=== PATIENT | male | born 1965 | race Caucasian/White ===

== ENCOUNTER 2021-04-05 12:24 | Outpatient (CLI) | payer MEDICARE, SELFPAY ==
--- NOTE | ~2021-04-05 | XR_ITS ---
XR foot LT standing 2V DATE: 04/05/2021 13:14 INDICATION: Osteoarthritis TECHNIQUE: AP and lateral weightbearing views COMPARISON: None FINDINGS: Diffuse osteopenia. There is plantar and posterior calcaneal enthesopathy. There is polyarticular osteoarthritis at the tarsal and tarsometatarsal joints and first and second m etatarsophalangeal joint. No fracture or dislocation, periosteal reaction or bone destruction is evident. There is prominent calcification of the anterior and posterior tibial arteries and dorsalis pedis art [place] and some metatarsal artery calcification, likely due to diabetes. IMPRESSION: Diffuse osteopenia Polyarticular osteoarthritis Prominent articular space, likely due to diabetes Reviewed, dictated and finalized at location A.
--- NOTE | ~2021-04-05 | XR_ITS ---
XR lumbar spine min 4V DATE: 04/05/2021 13:14 INDICATION: Back pain TECHNIQUE: AP, bilateral oblique, lateral and coned lateral sacral views COMPARISON: None FINDINGS: There is mild rotatory levoscoliosis. There is grade 1 anterolisthesis at L4-5. No spondylolisthesis is noted. No fracture or bone destruction is detected. The lumbar pedicles are intact. There is mild degenerative disc disease throughout the lumbar spine. Degenerative spurring of the low er thoracic spine. The sacroiliac joints are normal. Status post left total hip arthroplasty. Surgical clips, right upper quadrant, consistent with cholecystectomy. IMPRESSION: Mild rotatory levoscoliosis Multilevel mild degenerative disc disease Status post left total hip arthroplasty Status post cholecystectomy Reviewed, dictated and finalized at location A.
--- NOTE | ~2021-04-05 | XR_ITS ---
XR shoulder RT min 2V DATE: 04/05/2021 13:14 INDICATION: Right shoulder pain TECHNIQUE: 4 views COMPARISON: None FINDINGS: There is diffuse osteopenia. There is dextroscoliosis and degenerative spurring of the thoracic spine. No fracture or dislocation, periosteal reaction or bone destruction of the right shoulder is evident. There is osteophytic change at the right glenohumeral joint. IMPRESSION: Osteopenia Osteoarthritis at glenohumeral joint Degenerative spurring and extra scoliosis of the thoracic spine Reviewed, dictated and finalized at location A.
--- NOTE | ~2021-04-05 | XR_ITS ---
XR hand BI arthritis min 3V DATE: 04/05/2021 13:14 INDICATION: Pain. Osteoarthritis. TECHNIQUE: 4 views of each hand COMPARISON: None FINDINGS: Right hand: There is diffuse osteopenia. There is severe joint space narrowing at the radiocarpal joint and carpal joints as well as narrowing at the carpometacarpal joints. There is mild osteoarthritis at the metacarpophalangeal joints as wel l as osteophytic change at some of the interphalangeal joints. No erosive change is evident. No fracture, dislocation, periosteal reaction or bone destruction is de tected. Very prominent arterial calcification, especially the right and left radial artery, suggesting diabet es or less likely hyperparathyroidism or other hypercalcemic state. Left hand: There is ankylosis at the radiocarpal and carpal joints. There is joint space narrowing at the carpom etacarpal joints. Mild osteoarthritic changes are noted at the interphalangeal joints. IMPRESSION: Prominent polyarticular osteoarthritis of the right hand, particularly severe at the radi ocarpal and carpal joints Ankylosis at the left radiocarpal and carpal joints Osteoarthritis at the carpometacarpal and interphalangeal joints of the left hand Diffuse osteopenia Prominent arterial calcification, suggesting diabetes most likely Reviewed, dictated and finalized at location A. IMPRESSION: Prominent polyarticular osteoarthritis of the right hand, particula rly severe at the radiocarpal and carpal joints Ankylosis at the left radiocarpal and carpal joints Osteoarthritis at the carpometacarpal and interphalangeal joints of the left steinberg nd Diffuse osteopenia Prominent arterial calcification, suggesting diabetes most likely
--- NOTE | ~2021-04-05 | XR_ITS ---
XR shoulder LT min 2V DATE: 04/05/2021 13:14 INDICATION: Left shoulder pain TECHNIQUE: 4 views COMPARISON: None FINDINGS: There is diffuse osteopenia. No fracture or dislocation, periosteal reaction or bone destruction is detected. IMPRESSION: Osteopenia Reviewed, dictated and finalized at location A. IMPRESSION: Osteopenia
--- NOTE | ~2021-04-05 | XR_ITS ---
XR foot RT standing 2V DATE: 04/05/2021 13:14 INDICATION: Osteoarthritis TECHNIQUE: AP and lateral weightbearing views COMPARISON: None FINDINGS: There is diffuse osteopenia. There is plantar and posterior calcaneal enthesopathy. There is osteoarthritic change at the tarsal and tarsometatarsal joints and first metatarsophalangeal joint. No recent fracture or dislocation, periosteal reaction or bone destruction is detected. There is prominent calcification of the anterior and posterior tibial and dorsalis pedis arteries as well as metatarsal artery calcifications, likely due to diabetes. IMPRESSION: Polyarticular osteoarthritis Diffuse osteopenia Prominent articular calcifications, suggesting diabetes Reviewed, dictated and finalized at location A.
[2021-04-05 14:03] LABS: Hematocrit 39.5 % (42.0-52.0); Hemoglobin 11.8 g/dL (14.0-18.0); Mean Corpuscular HGB Conc 29.9 g/dl (32-36); Mean Corpuscular Hemoglobin 24.7 pg (26-34); Mean Corpuscular Volume 82.8 fl (80-100); Platelet Count Result 405 k/mm3 (150-375); Red Blood Count 4.77 M/mm3 (4.6-6.20); Red Cell Distribution Width 14.6 % (11.5-14.5); White Blood Count 7.9 K/mm3 (4.5-10.0)
[2021-04-05 14:12] LABS: Alanine Aminotransferase 13 U/L (4-50); Albumin Level 3.6 g/dL (3.5-5.1); Alkaline Phosphatase 89 U/L (38-126); Anion Gap 9 mmol/L (8-16); Aspartate Amino Transferase 16 U/L (17-59); Bilirubin,Total 0.3 mg/dL (0.2-1.3); Blood Urea Nitrogen 10 mg/dL (9-20); CRP 3.5 mg/dL (<1.0); Carbon Dioxide 27 mmol/L (22-30); Chloride 99 mmol/L (98-107); Estimated Glomerular Filt Rate > 60; Glucose 226 mg/dL (65-110); Potassium 4.2 mmol/L (3.4-5.0); Sodium 135 mmol/L (137-145)
[2021-04-05 14:36] LABS: Erythrocyte Sedimentation Rate 22 mm/hr (0-20)
[2021-04-05 15:02] LABS: Hepatitis B Surface Antigen Negative (Negative)
[2021-04-05 15:11] LABS: HAV RESULT Reactive (Negative); Hepatitis B Core IgM Result Negative (Negative)
[2021-04-05 15:19] LABS: Hepatitis C Virus Antibody Negative (Negative)
[2021-04-05 15:24] LABS: Rheumatoid Factor > 720.0 IU/ML (<12)
[2021-04-07 18:35] LABS: SM Antibody <1.0; SM/RNP Antibody <1.0; SS-A <1.0; SS-B <1.0
[2021-04-08 00:02] LABS: Anti Cyclic Citrullinated Pept >250 Units (<20)
[2021-04-08 10:54] LABS: NIL 0.01 IU/mL; Quantiferon TB Plus, 1T INDETERMINATE (NEGATIVE)
== END 2021-04-05 12:25 | disposition home or self-care (01) ==
LOC: ANHIMG 12:29
PROVIDERS: Visit Provider Internal Medicine
DX: M19.072 Primary osteoarthritis, left ankle and foot (principal); M41.9 Scoliosis, unspecified; M47.816 Spondylosis without myelopathy or radiculopathy, lumbar region; M16.12 Unilateral primary osteoarthritis, left hip; Z90.49 Acquired absence of other specified parts of digestive tract; M19.071 Primary osteoarthritis, right ankle and foot; M19.012 Primary osteoarthritis, left shoulder; M19.011 Primary osteoarthritis, right shoulder; M19.042 Primary osteoarthritis, left hand; M19.041 Primary osteoarthritis, right hand
CPT/HCPCS: 36415; 72110; 73030; 73130; 73620; 80053; 80074; 85027; 85652; 86038; 86140; 86200; 86225; 86235; 86430; 86480